=== PATIENT | female | born 1960 | race Asian ===

== ENCOUNTER 2019-11-14 08:34 | Day surgery (SDC) | payer MEDICARE ==
[~2019-11-14] VITALS: Ht 147.3 cm; Wt 43.5 kg
[2019-11-14] VITALS (14 sets, daily range): BP systolic 88–129; BP diastolic 46–79
[~2019-11-14 08:34] MED LIST: BUPR150T8 PO
[2019-11-14] MEDS ORDERED: AMLO10TA13 PO (09:06)
[2019-11-14] MEDS ORDERED: FENO150C4 (09:06)
[2019-11-14] MEDS ORDERED: TRAM50TA2 PO (09:06)
[2019-11-14] MEDS ORDERED: LOSA50TA64 PO (09:06)
[2019-11-14] MEDS ORDERED: ERGO500056 (09:06)
[2019-11-14] MEDS ORDERED: NABU500T2 PO (09:06)
[2019-11-14] MEDS ORDERED: ATOR40TA72 PO (09:06)
[2019-11-14] MEDS ORDERED: LORA-660 PO (09:08)
[2019-11-14] MEDS ORDERED: ZOLP5TAB8 PO (09:08)
[2019-11-14] MEDS ORDERED: DOXY1TAB3 PO (09:08)
[2019-11-14 09:38] LABS: BASOPHILS % (AUTO) 0.6 % (0-1); EOSINOPHILS # (AUTO) 0.1 X10'3 (0-0.9); HEMATOCRIT 35.7 % (35.0-45.0); HEMOGLOBIN 12.2 g/dl (12.0-16.0); LYMPHOCYTES # (AUTO) 1.9 X10'3 (1.1-4.8); LYMPHOCYTES % (AUTO) 28.2 % (21-51); MEAN CORPUSCULAR HEMOGLOBIN 30.1 PG (27.0-31.0); MEAN CORPUSCULAR HGB CONC 34.2 g/dL (33.0-36.5); MEAN PLATELET VOLUME 6.5 FL (7.4-10.4); MONOCYTES # (AUTO) 0.6 X10'3 (0-0.9); MONOCYTES % (AUTO) 8.6 % (2-12); NEUTROPHILS # (AUTO) 4.1 X10'3 (1.8-7.7); NEUTROPHILS % (AUTO) 60.6 % (42-75); PLATELET COUNT 367 X10'3 (140-440); RED BLOOD COUNT 4.06 X10'6 (4.20-5.60); RED CELL DISTRIBUTION WIDTH 12.9 % (11.5-14.5); WHITE BLOOD COUNT 6.7 X10'3 (4.5-11.0)
[2019-11-14] MEDS ORDERED: fentaNYL/PF 50MCG/1 ML 2ML syringe IV ONE (10:00)
[2019-11-14] MEDS ORDERED: MIDAZolam 1mg/ml 10ml vial IV ONE (10:00)
[2019-11-14] MEDS ORDERED: pneumococcal 23-VAL P-sac vacc 25 mcg/0.5ml vial IMVAC ONE (10:15)
[2019-11-14] MEDS ORDERED: normal saline 1000ml 1,000 ML IV SCH (11:03)
== END 2019-11-14 13:55 | disposition home or self-care (01) ==
LOC: SSTAY O 08:34
PROVIDERS: ATTEND Radiology Diagnostic Radiology
DX: R74.9 Abnormal serum enzyme level, unspecified (principal); K75.89 Other specified inflammatory liver diseases; K74.0 Hepatic fibrosis; Z23 Encounter for immunization; M06.9 Rheumatoid arthritis, unspecified; E11.9 Type 2 diabetes mellitus without complications; I10 Essential (primary) hypertension; E78.5 Hyperlipidemia, unspecified; M81.0 Age-related osteoporosis without current pathological fracture; K21.9 Gastro-esophageal reflux disease without esophagitis; G47.00 Insomnia, unspecified; Z88.2 Allergy status to sulfonamides; Z79.899 Other long term (current) drug therapy; Z11.59 Encounter for screening for other viral diseases
CPT/HCPCS: 36415; 47000; 76942; 82948; 85025; 87635; 90732; 99152; 99153; G0009; J2250; J3010

== ENCOUNTER 2024-07-12 15:22 | Outpatient (CLI) | payer MEDICARE, MEDICAID ==
[~2024-07-12 15:22] MED LIST changes: +AMLO10TA13 PO; +ATOR40TA72 PO; -BUPR150T8 PO; +DOXY1TAB3 PO; +ERGO500056; +FENO150C4; +LORA-657 PO; +LOSA50TA64 PO; +NABU-139 PO; +TRAM50TA2 PO; +ZOLP5TAB8 PO
== END 2024-07-12 23:59 | disposition home or self-care (01) ==
LOC: MRI02 15:22
PROVIDERS: ATTEND Physician Assistant
DX: M51.17 Intervertebral disc disorders with radiculopathy, lumbosacral region (principal); M54.50 Low back pain, unspecified; M47.816 Spondylosis without myelopathy or radiculopathy, lumbar region; M43.16 Spondylolisthesis, lumbar region; M47.27 Other spondylosis with radiculopathy, lumbosacral region; M48.07 Spinal stenosis, lumbosacral region
CPT/HCPCS: 72148